=== PATIENT | female | born 1995 | race African-American/Black ===

== ENCOUNTER 2022-03-05 20:59 | Emergency (ER) | payer OTHER ==
[2022-03-05 21:05] VITALS: BP 116/70; PULSE 71; RESP 17; TEMP 98.1; BMI 39.9
[2022-03-06] MEDS ORDERED: ACETAMINOPHEN 325 MG TABLET (FP) PO ONE (02:48)
[2022-03-06] MEDS ORDERED: ACETAMINOPHEN 325 MG TABLET (FP) ONE (03:07)
[2022-03-06] MEDS ORDERED: IBUPROFEN 600 MG TABLET (FP) PO ONE ×2 (03:38→05:32)
== END 2022-03-06 06:30 | disposition home or self-care (01) ==
LOC: JER 20:59 → JERFT 20:59 → JER 03-06 06:30
DX: M54.50 Low back pain, unspecified (principal); M79.601 Pain in right arm; V49.40XA Driver injured in collision with unspecified motor vehicles in traffic accident, initial encounter
CPT/HCPCS: 70450-TC; 71250-TC; 72125-TC; 72128-TC; 73090-TC-RT-FY; 73110-TC-RT-FY; 73130-TC-RT-FY; 84703; 99285-25